=== PATIENT | male | born 1995 | race Caucasian/White ===

== ENCOUNTER 2019-04-10 13:38 | Emergency (ER) | payer OTHER, MEDICAID ==
[~2019-04-10] VITALS: Ht 160 cm; Wt 50.5 kg
[2019-04-10 13:58] VITALS: BP 112/60
--- NOTE | 2019-04-10 14:40 | NUR ---
CHANTEL CASTILLO TO EVALUATE PT.
--- NOTE | 2019-04-10 14:40 | NUR ---
BIB MOM FOR FEVER AT HOME OF 89. TYLENOL GIVE AT NOON. MED HX: DEVELOPMENTALLY DELAYED AND SZ DISORDER
[2019-04-10 14:50] VITALS: BP 112/60
--- NOTE | 2019-04-10 14:50 | NUR ---
Patient discharged with v/s stable. Written and verbal after care instructions given and explained to parent/guardian. Parent/Guardian verbalized understanding of instructions. Ambulatory with steady gait. All questions addressed prior to discharge. ID band removed. Parent/Guardian advised to follow up with PMD. Rx of PROMETHAZINE, ACETAMINOPHEN AND CHILDREN'S IBUPROFEN given. Parent/Guardian educated on indication of medication including possible reaction and side effects. Opportunity to ask questions provided and answered.
== END 2019-04-10 14:50 | disposition home or self-care (01) ==
LOC: MED 13:38
DX: J06.9 Acute upper respiratory infection, unspecified (principal); Z88.1 Allergy status to other antibiotic agents; Z88.2 Allergy status to sulfonamides
CPT/HCPCS: 99283

== ENCOUNTER 2019-07-22 11:16 | Emergency (ER) | payer OTHER, MEDICAID ==
[~2019-07-22] VITALS: Ht 170.2 cm; Wt 47.6 kg
--- NOTE | 2019-07-22 11:27 | NUR ---
Patient bib mother with her mentally disabled daughter in w/c and refusing to enter into triage room at this time. Patient also brought her son to be checked in and pt refusing to enter triage at this time so mother is sitting in ER lobby. Pt appears agitated. Pt verbally abusive to triage nurse and myself. Pt advised to let ER admitting know when she would like to be triaged.
[2019-07-22 11:43] VITALS: BP 113/72
--- NOTE | 2019-07-22 12:28 | NUR ---
Patient to bed 5 with family. RN evaluating patient at bedside.
--- NOTE | 2019-07-22 12:47 | NUR ---
PT IS 24M BIB MOTHER C/O DRY COUGH X LAST NIGHT. RR EVEN AND NON LABORED, BREATH SOUNDS CLEAR THROUGHOUT. NO FEVER, N/V/D. MOTHER DID NOT NOTICE ANY OTHER RESPIRATORY SYMPTOMS. DENIES SOB. 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
--- NOTE | 2019-07-22 14:16 | NUR ---
pt sitting on bed, side rail up x1. pt non-verbal no facial grimicing, or withdrawaling from pain. pt playing with news papers.
[2019-07-22 14:30] VITALS: BP 128/69
--- NOTE | 2019-07-22 14:30 | NUR ---
Note preeti in ED - 07/22/19 at 1431 by ODALYS Patient discharged with v/s stable. Written and verbal after care instructions given and explained. Patient verbalized understanding. Ambulatory with steady gait. All questions addressed prior to discharge. Advised to follow up with PMD.
--- NOTE | 2019-07-22 14:30 | NUR ---
Patient discharged with v/s stable. Written and verbal after care instructions given and explained TO PT AND PT MOM DUE TO DEVELOPMENTAL DISABILITY. MOTHER verbalized understanding. Ambulatory with steady gait. All questions addressed prior to discharge. Advised to follow up with PMD.
== END 2019-07-22 14:30 | disposition home or self-care (01) ==
LOC: MED 11:16
DX: R05 Cough (principal); R09.89 Other specified symptoms and signs involving the circulatory and respiratory systems; Z88.1 Allergy status to other antibiotic agents; Z88.2 Allergy status to sulfonamides
CPT/HCPCS: 99283

== ENCOUNTER 2019-08-05 12:40 | Emergency (ER) | payer OTHER, MEDICAID ==
[~2019-08-05] VITALS: Ht 170.2 cm; Wt 47.2 kg
--- NOTE | 2019-08-05 12:45 | NUR ---
PT AMBULATED TO BED WITH MOTHER AND SISTER
[2019-08-05 12:56] VITALS: BP 133/73
--- NOTE | 2019-08-05 13:03 | NUR ---
SEEN JUL 24 FOR A COUGH---RETURNED TODAY F/U
[2019-08-05 13:44] VITALS: BP 121/77
--- NOTE | 2019-08-05 13:45 | NUR ---
Patient discharged with v/s stable. Written and verbal after care instructions given and explained. Patient verbalized understanding. Ambulatory with steady gait. All questions addressed prior to discharge. Advised to follow up with PMD.
== END 2019-08-05 13:45 | disposition home or self-care (01) ==
LOC: MED 12:40
DX: Z00.00 Encounter for general adult medical examination without abnormal findings (principal); F84.0 Autistic disorder; Z88.1 Allergy status to other antibiotic agents; Z88.2 Allergy status to sulfonamides
CPT/HCPCS: 99281

== ENCOUNTER 2024-05-29 12:34 | Inpatient (IN) | payer OTHER, MEDICAID ==
[~2024-05-29] VITALS: Ht 170.2 cm; Wt 50.8 kg
[2024-05-29 12:54] VITALS: BP 111/71; PULSE 73; RESP 17; TEMP 97.4; O2SAT 97
[2024-05-29 15:02] LABS: ANION GAP 15.5 (8-16); CARBON DIOXIDE 22.2 mmol/L (21-32); CREATININE 0.6 mg/dL (0.6-1.3); POTASSIUM 4.7 mmol/L (3.5-5.1)
[2024-05-29 15:08] LABS: ALBUMIN 3.5 g/dL (3.4-5.0); BILIRUBIN,DIRECT 0.1 mg/dL (0.0-0.3); TOTAL BILIRUBIN 0.2 mg/dL (0.0-1.0); TOTAL PROTEIN, SERUM 8.3 g/dL (6.4-8.2)
[2024-05-29] MEDS: LORazepam 1 MG TAB PO ONE (15:15)
[2024-05-29] MEDS ORDERED: cefTRIAXone 1,000 MG VIAL ONE (15:58)
[2024-05-29] MEDS: DIAZEPAM PFS 10 MG/2 ML SYR IVP ONE (16:08)
[2024-05-29 16:14] LABS: BASOPHILS % (AUTO) 0.5 % (0.0-2.0); EOSINOPHILS # (AUTO) 0.2 K/uL (0-0.4); EOSINOPHILS % (AUTO) 2.8 % (0.0-4.0); HEMATOCRIT 38.8 % (36-52); LYMPHOCYTES # (AUTO) 2.2 K/uL (2.0-11.5); MEAN CORPUSCULAR HEMOGLOBIN 30 pg (27-31); MEAN CORPUSCULAR HGB CONC 34 g/dL (33-37); MEAN CORPUSCULAR VOLUME 88.9 fL (80-94); MONOCYTES # (AUTO) 0.6 K/uL (0.8-1.0); NEUTROPHILS # (AUTO) 2.8 K/uL (1.8-7.7); NEUTROPHILS % (AUTO) 48.7 % (42.2-75.2); PLATELET COUNT (AUTO) 546 K/uL (140-450); RED BLOOD CELL COUNT(AUTO) 4.37 MIL/uL (4.20-6.10); RED CELL DISTRIBUTION WIDTH 13.7 % (11.6-13.7); WHITE BLOOD COUNT (AUTO) 5.8 K/uL (4.8-10.8)
[2024-05-29 16:32] LABS: LACTIC ACID 1.1 mmol/L (0.4-2.0)
[2024-05-29] MEDS: NACL 0.9% 1,500 ML IV ONE (16:32)
[2024-05-29] MEDS: diphenhydrAMINE 50 MG/ML VIAL IVP ONE (17:06)
[2024-05-29] MEDS: KETOROLAC 30 MG/ML VIAL IVP ONE (17:30)
[2024-05-29] MEDS ORDERED: MORPHINE SULFATE 4 MG/ML SYR IVP PRN (18:00)
[2024-05-29] MEDS ORDERED: ACETAMINOPHEN 325 MG TAB PO PRN (18:00)
[2024-05-29] MEDS ORDERED: HYDROcodone/APAP 5/325 MG 1 TAB TAB PO PRN (18:00)
[2024-05-29] MEDS: NACL 0.9% 1,000 ML IV SCH (18:00)
[2024-05-29] MEDS ORDERED: VANCOMYCIN PER PHARMACY MC PRN (18:00)
[2024-05-29] MEDS ORDERED: MAGNESIUM OXIDE 400 MG TAB PO PRN (18:00)
[2024-05-29] MEDS ORDERED: LORazepam 1 MG TAB PO PRN (18:00)
[2024-05-29] MEDS ORDERED: MAG SULF 2000 MG/WATER PREMIX 50 ML IV PRN (18:00)
[2024-05-29] MEDS ORDERED: ONDANSETRON 4 MG/2 ML VIAL IVP PRN (18:00)
[2024-05-29] MEDS ORDERED: CLON0.1T15 PO (19:26)
[2024-05-29] MEDS ORDERED: DIVA125E1 PO (19:26)
[2024-05-29] MEDS: VANCOMYCIN 1,000 MG in DEXTROSE 5% 250 ML IV SCH (20:12)
[2024-05-29 21:20] VITALS: PULSE 92; RESP 17; O2SAT 98
[2024-05-30] MEDS ORDERED: LORazepam 2 MG/ML VIAL IM/IVP PRN (00:15)
[2024-05-30 04:00] VITALS: BP 112/69; RESP 18; TEMP 97.3; O2SAT 97
[2024-05-30 06:28] LABS: BASOPHILS % (AUTO) 0.5 % (0.0-2.0); EOSINOPHILS # (AUTO) 0.2 K/uL (0-0.4); EOSINOPHILS % (AUTO) 1.9 % (0.0-4.0); HEMATOCRIT 41.1 % (36-52); LYMPHOCYTES # (AUTO) 1.9 K/uL (2.0-11.5); LYMPHOCYTES % (AUTO) 22.8 % (20.5-51.1); MEAN CORPUSCULAR HEMOGLOBIN 30 pg (27-31); MEAN CORPUSCULAR HGB CONC 34 g/dL (33-37); MEAN CORPUSCULAR VOLUME 88.4 fL (80-94); MONOCYTES # (AUTO) 0.8 K/uL (0.8-1.0); MONOCYTES % (AUTO) 10.2 % (1.7-9.3); NEUTROPHILS # (AUTO) 5.4 K/uL (1.8-7.7); NEUTROPHILS % (AUTO) 64.6 % (42.2-75.2); PLATELET COUNT (AUTO) 499 K/uL (140-450); RED BLOOD CELL COUNT(AUTO) 4.65 MIL/uL (4.20-6.10); RED CELL DISTRIBUTION WIDTH 13.9 % (11.6-13.7); WHITE BLOOD COUNT (AUTO) 8.3 K/uL (4.8-10.8)
[2024-05-30 07:05] LABS: ANION GAP 17.1 (8-16); CALCIUM 9.2 mg/dL (8.5-10.1); CREATININE 0.7 mg/dL (0.6-1.3); POTASSIUM 4.1 mmol/L (3.5-5.1)
[2024-05-30 08:00] VITALS: BP 112/55; PULSE 82; RESP 18; TEMP 87.3; TEMP 97.1; O2SAT 96
[2024-05-30 08:10] VITALS: PULSE 89; RESP 19
[2024-05-30 16:00] VITALS: BP 116/59; PULSE 78; RESP 18; TEMP 96.6; O2SAT 96
[2024-05-30 20:00] VITALS: BP 125/66; PULSE 90; RESP 18; TEMP 36.7; O2SAT 97
[2024-05-31 04:00] VITALS: BP 123/73; PULSE 74; RESP 18; TEMP 98.1; O2SAT 97
[2024-05-31] MEDS: DIVALPROEX SPRINKLES 125 MG CAPDR PO SCH (05:42)
[2024-05-31 06:25] LABS: ANION GAP 11.4 (8-16); CALCIUM 9.3 mg/dL (8.5-10.1); CARBON DIOXIDE 28.3 mmol/L (21-32); CREATININE 0.6 mg/dL (0.6-1.3); POTASSIUM 3.7 mmol/L (3.5-5.1)
[2024-05-31 07:47] LABS: BASOPHILS % (AUTO) 0.4 % (0.0-2.0); EOSINOPHILS # (AUTO) 0.1 K/uL (0-0.4); EOSINOPHILS % (AUTO) 1.4 % (0.0-4.0); HEMATOCRIT 39.5 % (36-52); HEMOGLOBIN 13.5 g/dL (12.0-18.0); LYMPHOCYTES # (AUTO) 1.4 K/uL (2.0-11.5); LYMPHOCYTES % (AUTO) 20.8 % (20.5-51.1); MEAN CORPUSCULAR HEMOGLOBIN 30 pg (27-31); MEAN CORPUSCULAR HGB CONC 34 g/dL (33-37); MEAN CORPUSCULAR VOLUME 88.2 fL (80-94); MONOCYTES # (AUTO) 0.7 K/uL (0.8-1.0); MONOCYTES % (AUTO) 9.6 % (1.7-9.3); NEUTROPHILS # (AUTO) 4.7 K/uL (1.8-7.7); NEUTROPHILS % (AUTO) 67.8 % (42.2-75.2); PLATELET COUNT (AUTO) 646 K/uL (140-450); RED BLOOD CELL COUNT(AUTO) 4.48 MIL/uL (4.20-6.10); WHITE BLOOD COUNT (AUTO) 6.9 K/uL (4.8-10.8)
[2024-05-31 08:00] VITALS: BP 127/77; PULSE 78; PULSE 87; RESP 17; RESP 18; TEMP 97.3; TEMP 98.2; O2SAT 97; O2SAT 99
[2024-05-31] MEDS: CLONIDINE HYDROCHLORIDE 0.1 MG TAB PO SCH (09:00)
[2024-05-31] MEDS: VANCOMYCIN 1.25GM PREMIX 250 ML IV SCH (11:14)
[2024-05-31 12:00] VITALS: BP 120/68; PULSE 82; RESP 17; TEMP 98; O2SAT 99
[2024-05-31 16:00] VITALS: BP 122/63; PULSE 74; RESP 18; TEMP 97.1; O2SAT 99
[2024-05-31 18:38] VITALS: BP 122/64; PULSE 72; RESP 17; TEMP 98
== END 2024-05-31 19:35 | disposition home or self-care (01) | DRG 556 ==
LOC: MED 12:34 → MMU 18:00 → MTU 20:30
PROVIDERS: ADMIT Hospitalist; ATTEND Hospitalist
DX: M79.89 Other specified soft tissue disorders (principal); E87.1 Hypo-osmolality and hyponatremia; I10 Essential (primary) hypertension; G40.909 Epilepsy, unspecified, not intractable, without status epilepticus; Z79.899 Other long term (current) drug therapy; R62.50 Unspecified lack of expected normal physiological development in childhood
CPT/HCPCS: 36415; 73630; 80048; 80076; 80202; 83605; 85025; 87040; 87081; 96365; 96375; 99285; J0696; J1200; J1644; J3360; J3370; J3372; J7060

== ENCOUNTER 2024-07-27 17:38 | Emergency (ER) | payer OTHER, MEDICAID ==
[~2024-07-27] VITALS: Ht 170.2 cm; Wt 54.2 kg
[~2024-07-27 17:38] MED LIST: CLON0.1T15 PO; DIVA125E1 PO
[2024-07-27 18:23] VITALS: BP 122/76; PULSE 98; RESP 19; TEMP 98; O2SAT 98
[2024-07-27] MEDS ORDERED: DIPH25TA53 PO (20:19)
[2024-07-27] MEDS ORDERED: HYDR28CR67 TP (20:19)
[2024-07-27] MEDS ORDERED: CEPH500C16 PO (20:19)
== END 2024-07-27 20:28 | disposition home or self-care (01) ==
LOC: MED 17:38
DX: R21 Rash and other nonspecific skin eruption (principal); R03.0 Elevated blood-pressure reading, without diagnosis of hypertension; L53.9 Erythematous condition, unspecified; R60.0 Localized edema; Z79.899 Other long term (current) drug therapy; Z88.2 Allergy status to sulfonamides; Z88.1 Allergy status to other antibiotic agents
CPT/HCPCS: 99283